=== PATIENT | female | born 1990 | race Caucasian/White ===

== ENCOUNTER 2022-10-05 18:05 | Inpatient (IN) ==
[2022-10-05] MEDS ORDERED: Lactated Ringers 1000 ml BAG 1,000 ML IV ONE (18:39)
[2022-10-05] MEDS ORDERED: Promethazine INJ(RESTRICTED) 25 MG/ML 1 ml VIAL IV PRN (18:39)
[2022-10-05] MEDS ORDERED: Buffered Lidocaine 1% SYRIN 1 ml INTRADERM ONE (18:39)
[2022-10-05] MEDS ORDERED: Dinoprostone 10 MG VAG.SUPP VAGINAL ONE (18:39)
[2022-10-05 21:59] LABS: Urine Benzodiazepine Screen None Detected (None Detect); Urine Opiates Screen None Detected (None Detect)
[2022-10-06] MEDS ORDERED: miSOPROStol 100 mcg TAB PO ONE (09:01)
[2022-10-06] MEDS: Lactated Ringers 1000 ml BAG 1,000 ML IV SCH (11:50)
[2022-10-06 12:15] LABS: ABS Eosinophils 0.1 10^3/uL (0.0-0.5); ABS Lymphocytes 1.5 10^3/uL (1.0-4.8); ABS Monocytes 0.6 10^3/uL (0.0-0.9); ABS Neutrophils 8.9 10^3/uL (1.5-7.6); Hematocrit 36.9 % (35-45); Hemoglobin 12.6 g/dL (11.5-14.3); Lymphocyte % 13.5 %; Mean Corpuscular Hemoglobin 27.8 pg (27-33); Mean Corpuscular Hgb Conc 34.1 g/dL (31-36); Mean Corpuscular Volume 81.6 fL (80-97); Mean Platelet Volume 9.4 fL (7.5-11.2); Platelet Count 258 10^3/uL (150-450); Red Blood Count 4.52 10^6/uL (3.63-4.92); Red Cell Distribution Width 16.5 % (12-17); White Blood Count 11.1 10^3/uL (3.8-11.8)
[2022-10-06] MEDS ORDERED: Dinoprostone 10 MG VAG.SUPP VAGINAL ONE (13:46)
[2022-10-07] MEDS ORDERED: Oxytocin in LR 20,000 MILLI.UNIT/1,000 ML BAG IV SCH (05:35)
[2022-10-07] MEDS: Lactated Ringers 1000 ml BAG 1,000 ML IV SCH ×2 (05:57→17:26)
[2022-10-07] MEDS ORDERED: ceFAZolin 2 GM PREMIX 2 GM/50 ML BAG ONE (17:20)
[2022-10-07] MEDS ORDERED: Azithromycin 500 mg/250 ml NS 500 MG/250 ML BAG IVPB ONE (17:22)
[2022-10-07] MEDS ORDERED: Methylergonovine 0.2 mg AMPULE 1 ml AMP ONE (17:31)
[2022-10-07] MEDS ORDERED: Morphine PF AMP (0.5MG/ML) 5 MG/10 ML AMP ONE ×2 (17:32→17:45)
[2022-10-07] MEDS ORDERED: Phenylephrine 40 mcg/mL 10mL (400mcg) SYRINGE ONE (17:32)
[2022-10-07] MEDS ORDERED: fentaNYL 100 mcg/2 ml 50 MCG/ML VIAL ONE (17:32)
[2022-10-07] MEDS ORDERED: Carboprost Tromethamine 250 mcg 1 ml VIAL ONE (17:32)
[2022-10-07] MEDS ORDERED: Sodium Citrate/Citric Acid LIQ 15 ML UDC ONE (17:51)
[2022-10-07] MEDS ORDERED: Oxytocin 10 UNITS/ML 1 ML VIAL ONE (17:55)
[2022-10-07] MEDS ORDERED: ceFAZolin 2 GM PREMIX 2 GM/50 ML BAG IVPB ONE (18:00)
[2022-10-07] MEDS ORDERED: Ondansetron 4 mg VIAL 2 MG/ML 2 ml VIAL ONE (18:26)
[2022-10-07] MEDS ORDERED: Naloxone 0.4 mg VIAL 0.4 mg/ml 1 ml VIAL IV PUSH PRN (19:09)
[2022-10-07] MEDS ORDERED: Ondansetron 4 mg VIAL 2 MG/ML 2 ml VIAL IV PRN (19:09)
[2022-10-07] MEDS ORDERED: Acetaminophen IV 1 GM/100ML 1,000 MG/100 ML BAG IV PRN (19:09)
[2022-10-07 19:38] LABS: Urine Appearance Clear; Urine Bilirubin Negative (Negative); Urine Blood 1+ (Negative); Urine Color Straw; Urine Glucose Negative (Negative); Urine Ketones 2+ (Negative); Urine Nitrite Negative (Negative); Urine Protein Negative (Negative); Urine Specific Gravity 1.005 (1.002-1.030); Urine Urobilinogen Negative (Negative)
[2022-10-07 19:40] LABS: Urine Bacteria Absent (Absent); Urine Red Blood Cell Trace(0-2/hpf) (Absent); Urine Squamous Epithelial Cell Present (Absent); Urine White Blood Cell Absent (Absent)
[2022-10-07] MEDS ORDERED: Glycerin ADULT 2.4 gm SUPP PR PRN (19:45)
[2022-10-07] MEDS ORDERED: Dibucaine 1% OINT 28.35 GM TUBE PR PRN (19:45)
[2022-10-07] MEDS ORDERED: Witch Hazel PAD JAR TOPICAL PRN (19:45)
[2022-10-07] MEDS ORDERED: Methylergonovine 0.2 mg AMPULE 1 ml AMP IM ONE (19:45)
[2022-10-07] MEDS ORDERED: RHO D Immune Globulin (HUMAN) 300 MCG = 1,500 I.U. INJ IM PRN (19:45)
[2022-10-07] MEDS ORDERED: Lactated Ringers 1000 ml BAG 1,000 ML IV SCH (20:00)
[2022-10-07] MEDS ORDERED: Oxytocin 10 UNITS/ML 1 ML VIAL IV SCH (20:00)
[2022-10-08] MEDS: Lactated Ringers 1000 ml BAG 1,000 ML IV SCH (00:56)
[2022-10-08 07:11] LABS: ABS Basophils 0.1 10^3/uL (0.0-0.1); ABS Eosinophils 0.1 10^3/uL (0.0-0.5); ABS Lymphocytes 1.8 10^3/uL (1.0-4.8); ABS Monocytes 0.9 10^3/uL (0.0-0.9); ABS Neutrophils 11.3 10^3/uL (1.5-7.6); Eosinophil % 0.4 %; Hemoglobin 9.7 g/dL (11.5-14.3); Lymphocyte % 12.6 %; Mean Corpuscular Hemoglobin 28.1 pg (27-33); Mean Corpuscular Hgb Conc 34.6 g/dL (31-36); Mean Corpuscular Volume 81.2 fL (80-97); Mean Platelet Volume 8.1 fL (7.5-11.2); Platelet Count 204 10^3/uL (150-450); Red Blood Count 3.45 10^6/uL (3.63-4.92); Red Cell Distribution Width 16.1 % (12-17)
[2022-10-10 09:12] VITALS: BP 122/87
== END 2022-10-10 14:11 | disposition home or self-care (01) | DRG 540 ==
LOC: MCHOBOUT 18:05 → MCHOB 18:24
PROVIDERS: ADMIT Registered Nurse; ATTEND Registered Nurse